=== PATIENT | male | born 1950 | race Two or more races ===

== ENCOUNTER 2022-08-16 23:49 | Emergency (ER) | payer MEDICARE, MEDICAID ==
[2022-08-17] MEDS ORDERED: IBUP-2492 PO (01:19)
[2022-08-17] MEDS ORDERED: NAPR-1024 PO (01:19)
[2022-08-17 03:30] VITALS: BP 135/84
[2022-08-17] MEDS ORDERED: KETOROLAC TROMETHAMINE 30 MG/ML VIAL IM ONE (03:30)
== END 2022-08-17 04:51 | disposition home or self-care (01) ==
LOC: EMS 23:50
DX: M79.672 Pain in left foot (principal); M79.671 Pain in right foot; M25.572 Pain in left ankle and joints of left foot; M25.571 Pain in right ankle and joints of right foot; I10 Essential (primary) hypertension; F17.210 Nicotine dependence, cigarettes, uncomplicated
CPT/HCPCS: 99283; 96372; J1885